=== PATIENT | female | born 1975 | race Caucasian/White ===

== ENCOUNTER → 2017-02-23 | Outpatient (CLI) | payer MEDICAID | LOC: HPND 07:53 | PROVIDERS: ATTEND Obstetrics & Gynecology | DX: O09.523 Supervision of elderly multigravida, third trimester (principal) | CPT/HCPCS: 76811 ==

== ENCOUNTER → 2017-03-23 | Outpatient (CLI) | payer MEDICAID | LOC: HPND 13:07 | PROVIDERS: ATTEND Obstetrics & Gynecology | DX: O09.523 Supervision of elderly multigravida, third trimester (principal) | CPT/HCPCS: 76816 ==